=== PATIENT | male | born 1970 | race Caucasian/White ===

== ENCOUNTER 2019-01-10 07:13 | Day surgery (SDC) | payer OTHER, SELFPAY ==
[2019-01-10] VITALS (10 sets, daily range): BP systolic 102–140; BP diastolic 7–94; PULSE 66–94; RESP 10–16; TEMP 36.3–37.2; O2SAT 93–98; BMI 28.9
[2019-01-10] MEDS: SODIUM CHLORIDE 0.9% 1,000 ML 200 ML IV (07:46)
--- NOTE | 2019-01-10 09:10 | PM.HP.1 ---
History of Present Illness Date Patient Seen: 01/10/19 Time Patient Seen: 09:10 Chief complaint: [id number] Narrative: Patient is a gentleman who has been having crampy lower abdominal pain. He is 48 and here for screening colonoscopy. Denies any diarrhea or blood in his stool. He thought he had a urinary tract infection because he has had 1 before. Cultures have been done but he has not heard from the results. Patient History Medical History (Updated 01/10/19 @ 07:59 by Niharika Mraino RN) Asthma (Acute) Bladder pain (Acute) Enlarged prostate (Acute) History of bronchitis (Acute) Hypothyroid (Acute) Prostatitis (Acute) Surgical History (Updated 01/10/19 @ 07:40 by Niharika Marino RN) H/O eye surgery (Acute) H/O right knee surgery (Acute ~2001) H/O shoulder surgery (Acute ~1993) Social History household members: none Family & Social History Social History: household members none Meds Home Medications Medication Instructions Recorded Confirmed Type albuterol sulfate 2 puff INHALATION Q4-6H PRN 01/10/19 01/10/19 History doxycycline hyclate 100 mg PO BID 01/10/19 01/10/19 History ibuprofen [Advil] 400 mg PO BID 01/10/19 01/10/19 History levothyroxine 50 mcg PO DAILY 01/10/19 01/10/19 History Allergies Allergy/AdvReac Type Severity Reaction Status Date / Time shellfish derived Allergy Severe Throat Verified 01/10/19 07:33 swelling Review of Systems Review of Systems All systems reviewed & are unremarkable except as noted in HPI and below Exam Vital Signs (past 8 hours): - 01/10/19 07:47 Temperature 97.3 F L Pulse Rate 94 H Respiratory Rate 16 Blood Pressure 140/94 H Pulse Oximetry 96 Oxygen Delivery Method Room Air Narrative Exam Narrative: Pleasant cooperative patient no apparent distress. Lungs are clear to auscultation. No rales or rhonchi. Heart regular rate and rhythm no murmur gallop. Abdomen is soft nontender without mass. No obvious hernias. Patient is alert and oriented x3. Assessment & Plan Assessment & Plan narrative: The patient for a screening colonoscopy. I have discussed the procedure with them. Risks of bleeding, perforation which would necessitate major operation, failure to find remove all lesions, the potential tattoo were all discussed. All questions were answered. They wished to proceed.
--- NOTE | 2019-01-10 09:12 | PM.PREOP ---
Pre-operative Note Interval Note History & Physical reviewed/Exam performed by Physician: Yes Changes to H&P: No ASA Class (for procedural sedation): I
[2019-01-10] MEDS: MIDAZOLAM 5 MG/5 ML VIAL IV (09:30)
[2019-01-10] MEDS: fentaNYL 250 MCG/5 ML INJ IV (09:30)
--- NOTE | 2019-01-10 09:39 | PM.OP.ENDO ---
Operative Date/Time/Diagnoses Date of procedure: 01/10/19 Time of procedure: 09:40 Post-op diagnosis: same (Extensive sigmoid diverticulosis) Procedure & Clinicians Study performed: Colonoscopy Same procedure as scheduled: Yes Indications: Screening Surgeon: Newton Adhikari Procedure Notes SCOAP/Timeout: Perform Procedure in detail: The patient was placed in the left lateral decubitus position and underwent IV sedation directed by the surgeon consisting of fentanyl and Versed. Digital exam was unremarkable. The prostate is normal in size and consistency. No bogginess. Patient did not react unusually with palpation.. The scope was inserted and advanced through the rectum into the sigmoid, descending, transverse, and ascending colon. In the sigmoid I noted extensive diverticulosis. There was no evidence of stricture or inflammation however. Pressure was applied we made our way into the cecum.. The cecum was reached identified by the ileocecal valve and the appendiceal opening. The scope was gradually brought out. No Polyps were found. The scope ultimately was retroflexed in the rectum. The appearance was normal. However is as I slowly brought the scope through the anal canal there were some internal hemorrhoids right inside the anal verge. There were no ulcers on these hemorrhoids. The scope was removed and the patient tolerated the procedure well. The prep was very good. Scope withdrawal time: 8 minutes Sedation minutes: 19 Findings: diverticulosis (Sigmoid) and internal hemorrhoids (Small) Specimen(s): none sent Complications: none Recommendations: Colonscopy in 10 years Follow up: as needed Disposition: PACU
--- NOTE | 2019-01-10 09:48 | SUR.PHASEI ---
Sleeping on arrival to PACU, resp even and regular, skin warm and dry.
--- NOTE | 2019-01-10 10:08 | SUR.PHASEI ---
aroused to voice, HOB elevated, sips of water given. Very drowsy -- returned to sleep immeddately. Resp even and regular.
--- NOTE | 2019-01-10 10:18 | SUR.PHASEI ---
arouses easily to voice, mostly sleeping. Stable for transfer to [facility].
--- NOTE | 2019-01-10 10:34 | SUR.PHASEII ---
Assumed care from Niharika. Pt still sleepy, belly soft, tender to palpation, states he was tender pro procedure as well.
--- NOTE | 2019-01-10 15:54 | SUR.PHASEII ---
Pt unable to give urine specimen, Dr. Adhikari made aware. Pt left when ready and left in stable condition.
--- NOTE | 2019-01-10 15:57 | SUR.PHASEII ---
Late entry: stable post op, slow to wake up.
== END 2019-01-10 10:55 | disposition home or self-care (01) ==
PROVIDERS: PCP Family Medicine; Visit Provider Specialist
PROC: 0DJD8ZZ Inspection of Lower Intestinal Tract, Via Natural or Artificial Opening Endoscopic (ICD-10-PCS; CPT 45378; principal; 2019-01-10 08:45)
DX: R10.30 Lower abdominal pain, unspecified (principal); K57.30 Diverticulosis of large intestine without perforation or abscess without bleeding; K64.8 Other hemorrhoids
CPT/HCPCS: 45378; 99152; J2250; J3010